=== PATIENT | female | born 1965 | race Caucasian/White ===

== ENCOUNTER 2019-05-08 09:58 | Day surgery (SDC) | payer OTHER ==
[~2019-05-08] VITALS: Ht 177.8 cm; Wt 122.7 kg
[2019-05-08] MEDS ORDERED: RIVAROXABAN 20 MG TABLET PO STA (10:27)
[2019-05-08] MEDS ORDERED: RIVAROXABAN 20 MG TABLET ONE (10:32)
[2019-05-08] MEDS ORDERED: PLEASE ENTER HEIGHT AND WEIGHT MC SCH (11:00)
[2019-05-08] MEDS ORDERED: DILT360C26 PO (11:07)
[2019-05-08] MEDS ORDERED: DULA1.5P PO (11:07)
[2019-05-08] MEDS ORDERED: MAGN400T36 PO (11:07)
[2019-05-08] MEDS ORDERED: FAMO20TA7 PO (11:07)
[2019-05-08] MEDS ORDERED: RIVA20TA PO (11:07)
[2019-05-08] MEDS ORDERED: TOPI25CA12 PO (11:07)
[2019-05-08] MEDS ORDERED: DULA1.5P SC (11:11)
[2019-05-08] MEDS ORDERED: PROPOFOL 10 MG/ML, 20ML ONE (12:31)
[2019-05-09] MEDS ORDERED: RIVAROXABAN 20 MG TABLET PO SCH (06:00)
== END 2019-05-08 13:31 | disposition home or self-care (01) ==
LOC: CACL 09:58
PROVIDERS: ATTEND Internal Medicine Cardiovascular Disease
DX: I48.91 Unspecified atrial fibrillation (principal); I48.92 Unspecified atrial flutter; J45.909 Unspecified asthma, uncomplicated; E11.9 Type 2 diabetes mellitus without complications; Z79.01 Long term (current) use of anticoagulants; Z79.899 Other long term (current) drug therapy; Z88.5 Allergy status to narcotic agent
CPT/HCPCS: 92960; 93005; J2704

== ENCOUNTER 2019-07-10 11:48 | Emergency (ER) | payer OTHER ==
[~2019-07-10] VITALS: Ht 177.8 cm; Wt 107.0 kg
[~2019-07-10 11:48] MED LIST: DILT30TA27 PO; DILT360C26 PO; DULA1.5P PO; DULA1.5P SC; FAMO20TA7 PO; FLUT1BLS INH; LEVA15HF4 INH; MAGN400T36 PO; ONDA8TAB9 PO; RIVA20TA PO; TOPI25CA12 PO; TROKENDI PO
[2019-07-10] MEDS ORDERED: DILTIAZEM 5 MG/ML, 5ML IVPush ONE (12:00)
[2019-07-10] MEDS ORDERED: DILTIAZEM 5 MG/ML, 5ML ONE (12:01)
--- NOTE | 2019-07-10 12:09 | NUR ---
PT WAS IN CLINIC FOR LABS AND IMAGING FOR SCHEDULED ABLATION TOMORROW FOR AFIB. PT WAS FEELING DIZZY, FOUND TO BE IN AFIB 160S RVR. PT IS ON PHARMACY INTAKE TECHNICIAN, AFIB 130-160, PA AT BEDSIDE. PT IS A&OX4, NOT IN DISTRESS, BP 120/89 MEDICATED W DILT 20 MG PER ORDERS. PT TOLERATED MEDICATION AND NOW IN AFLUTTER 87-90. PT IS TEARFUL, NOT IN DISTRESS.
[2019-07-10 12:20] LABS: BASOPHILS # (AUTO) 0.04 x10^3/uL (0-0.1); BASOPHILS % (AUTO) 1 % (0-1); EOSINOPHILS # (AUTO) 0.16 x10^3/uL (0-0.4); EOSINOPHILS % (AUTO) 2 % (1-7); LYMPHOCYTES # (AUTO) 2.61 x10^3/uL (1-3.4); LYMPHOCYTES % (AUTO) 34 % (22-44); MD NO; MEAN CORPUSCULAR HEMOGLOBIN 31.5 pg (27.0-34.8); MEAN CORPUSCULAR HGB CONC 33.5 g/dL (32.4-35.8); MEAN CORPUSCULAR VOLUME 94.1 fL (80-100); MEAN PLATELET VOLUME 9.8 fL (7.4-10.4); MONOCYTES # (AUTO) 0.67 x10^3/uL (0.2-0.8); MONOCYTES % (AUTO) 9 % (2-9); NEUTROPHILS # (AUTO) 4.11 x10^3/uL (1.8-6.8); NEUTROPHILS % (AUTO) 54 % (42-75); PLATELET COUNT 259 x10^3/uL (130-400); RED BLOOD COUNT 4.77 x10^6/uL (3.82-5.3); RED CELL DISTRIBUTION WIDTH 13.2 % (9.6-15.2)
[2019-07-10 12:29] LABS: ALBUMIN 3.4 g/dL (3.4-5.0); ANION GAP 5 mmol/L (5-15); CALCIUM 8.5 mg/dL (8.5-10.1); CHLORIDE 113 mmol/L (98-107)
--- NOTE | 2019-07-10 13:14 | NUR ---
DISCUSSED POC W PA, PLAN FOR DC AND CONFIRM PT APPOINTMENT W CLINIC FOR ABLATION TOMORROW. PT AGREES W POC. VS STABLE, HR AFIB 88
[2019-07-10 13:41] VITALS: BP 122/85
--- NOTE | 2019-07-10 13:41 | NUR ---
Patient/Caregiver given discharge instructions and they have confirmed that they understand the instructions. Patient ambulatory with steady gait.
[2019-07-11] MEDS ORDERED: TOPI25CA12 PO (06:50)
== END 2019-07-10 14:06 | disposition home or self-care (01) ==
LOC: ED 14:02
DX: I48.92 Unspecified atrial flutter (principal)
CPT/HCPCS: 36415; 71045; 80048; 82040; 85025; 93005; 96374

== ENCOUNTER 2019-07-11 06:22 | Observation (INO) | payer OTHER ==
[2019-07-10 11:09] VITALS: BP 113/71
[~2019-07-11] VITALS: Ht 177.8 cm; Wt 125.0 kg
[2019-07-11] MEDS ORDERED: SODIUM CHLORIDE 0.9% 1,000 ML IV SCH ×2 (06:34→07:00)
[2019-07-11] MEDS ORDERED: TOPI25CA12 PO (06:50)
[2019-07-11] MEDS ORDERED: LIDOCAINE 1%, 20ML ONE (07:19)
[2019-07-11] MEDS ORDERED: MIDAZOLAM 1 MG/ML, 2ML ONE (07:29)
[2019-07-11] MEDS ORDERED: FENTANYL PF 250 MCG/5ML ONE (07:29)
[2019-07-11] MEDS ORDERED: PROMETHAZINE 25 MG/ML, 1ML IV PRN (08:00)
[2019-07-11] MEDS ORDERED: MEPERIDINE/PF 25MG/ML,1ML IVPush PRN (08:00)
[2019-07-11] MEDS ORDERED: MORPHINE SULFATE 4 MG/ML, 1ML IVPush PRN (08:00)
[2019-07-11] MEDS ORDERED: LABETALOL 5MG/ML, 20ML IV PRN (08:00)
[2019-07-11] MEDS ORDERED: FENTANYL PF 100 MCG/2ML IV PRN (08:00)
[2019-07-11] MEDS ORDERED: HALOPERIDOL 5 MG/ML IV PRN (08:00)
[2019-07-11] MEDS ORDERED: ACETAMINOPHEN 325 MG TABLET PO PRN (08:00)
[2019-07-11] MEDS ORDERED: HYDROmorphone 2 MG/ML, 1ML IVPush PRN (08:00)
[2019-07-11] MEDS ORDERED: hydrALAzine 20 MG/ML, 1ML IV PRN (08:00)
[2019-07-11] MEDS ORDERED: PHENYLEPHRINE 10 MG/ML ONE (08:01)
[2019-07-11] MEDS ORDERED: ALBUTEROL HFA 90 MCG/SPRAY ONE (08:28)
[2019-07-11] MEDS ORDERED: GLYCOPYRROLATE 0.2MG/1ML, 5ML ONE (08:28)
[2019-07-11] MEDS ORDERED: CEFAZOLIN 1,000 MG ONE (08:28)
[2019-07-11] MEDS ORDERED: NEOSTIGMINE 1 MG/ML, 10ML ONE (08:28)
[2019-07-11] MEDS ORDERED: DEXAMETHASONE 4 MG/ML, 1ML ONE (08:28)
[2019-07-11] MEDS ORDERED: PROPOFOL 10 MG/ML, 20ML ONE (08:28)
[2019-07-11] MEDS ORDERED: ONDANSETRON 2MG/ML, 2ML ONE ×2 (08:28→14:12)
[2019-07-11] MEDS ORDERED: ROCURONIUM 10MG/ML,5ML ONE ×2 (08:28→10:07)
[2019-07-11] MEDS ORDERED: SUGAMMADEX 200 MG/2 ML IVPush ONE (10:46)
[2019-07-11] MEDS ORDERED: MEPERIDINE/PF 25MG/ML,1ML ONE (10:56)
[2019-07-11] MEDS ORDERED: ONDANSETRON 8 MG TABLET PO PRN (11:00)
[2019-07-11] MEDS ORDERED: TEMPLATE NON-FORMULARY MED. (Dulaglutide (Trulicity) 1.5 MG) SC SCH (11:00)
[2019-07-11] MEDS: RIVAROXABAN 20 MG TABLET PO SCH (11:35)
[2019-07-11] MEDS ORDERED: ALBUTEROL SULFATE 2.5 MG/3 ML ONE (12:31)
[2019-07-11] MEDS ORDERED: ALBUTEROL SULFATE 2.5 MG/3 ML NPPB ONE (13:00)
[2019-07-11] MEDS ORDERED: HYDROcodone/APAP 5/325 TABLET ONE (14:12)
[2019-07-11] MEDS: ONDANSETRON 2MG/ML, 2ML IVPush PRN ×2 (14:16→22:02)
[2019-07-11] MEDS: HYDROcodone/APAP 5/325 TABLET PO PRN ×2 (14:17→18:32)
[2019-07-11] MEDS: DILTIAZEM 30 MG TABLET PO SCH ×2 (17:38→21:19)
[2019-07-11 17:41] VITALS: BP 107/74
[2019-07-11 19:00] VITALS: BP_SYST 118; BP_SYST 127; BP_DIAS 69; BP_DIAS 74
[2019-07-11] MEDS: ALBUTEROL SULFATE 2.5 MG/3 ML NPPB SCH (19:26)
[2019-07-11] MEDS: BUDESONIDE 0.5 MG/2 ML INHA NPPB SCH (19:26)
[2019-07-11] MEDS ORDERED: TEMPLATE NON-FORMULARY MED. (Levalbuterol Tartrate** (Xopenex Hfa**) 1 PUFF) INH SCH (21:00)
[2019-07-11] MEDS ORDERED: [UNRECOGNIZED DRUG - OTHER] INH SCH (21:00)
[2019-07-11] MEDS: FAMOTIDINE 20 MG TABLET PO SCH (21:19)
[2019-07-12 01:40] VITALS: BP 108/72
[2019-07-12] MEDS: HYDROcodone/APAP 5/325 TABLET PO PRN ×2 (02:18→09:12)
[2019-07-12] MEDS: ALBUTEROL SULFATE 2.5 MG/3 ML NPPB SCH (03:00)
[2019-07-12 06:46] VITALS: BP 110/78
[2019-07-12] MEDS ORDERED: RIVAROXABAN 20 MG TABLET PO SCH (07:00)
[2019-07-12] MEDS: BUDESONIDE 0.5 MG/2 ML INHA NPPB SCH (08:30)
[2019-07-12] MEDS ORDERED: ALBUTEROL SULFATE 2.5 MG/3 ML NPPB PRN (09:00)
[2019-07-12] MEDS ORDERED: TOPIRAMATE 25 MG HOMEMEDPO SCH (09:00)
[2019-07-12] MEDS: DILTIAZEM 30 MG TABLET PO SCH (09:11)
[2019-07-12] MEDS: FAMOTIDINE 20 MG TABLET PO SCH (09:12)
[2019-07-12] MEDS: RIVAROXABAN 20 MG TABLET PO SCH (09:12)
[2019-07-12 09:18] VITALS: BP 104/73
== END 2019-07-12 12:10 | disposition home or self-care (01) ==
LOC: CACL 06:22 → EDSTATUS 08:00 → ORIP 10:44 → 5SO 15:08 → DCLOUNGE 07-12 11:53
PROVIDERS: ADMIT Internal Medicine Cardiovascular Disease; ATTEND Internal Medicine Cardiovascular Disease
DX: I48.91 Unspecified atrial fibrillation (principal); R42 Dizziness and giddiness; H93.19 Tinnitus, unspecified ear; I48.92 Unspecified atrial flutter; Z79.899 Other long term (current) drug therapy; Z79.01 Long term (current) use of anticoagulants
CPT/HCPCS: 82962; 93306; 93312; 93321; 93325; 93613; 93656; 93657; 93662; 94640; 96374; 96376; C1730; C1732; C1759; C1766; C1893; C1894; G0378; J0690; J1100; J2175; J2250; J2370; J2405; J2704; J2710; J3010; J3490; J7613; J7626